=== PATIENT | female | born 1940 | race Caucasian/White ===

== ENCOUNTER 2020-01-08 07:54 | Day surgery (SDC) | payer MEDICARE ==
[2020-01-08] VITALS (7 sets, daily range): BP systolic 112–167; BP diastolic 67–78
[~2020-01-08] VITALS: Ht 160 cm; Wt 51.1 kg
[~2020-01-08 07:54] MED LIST: ASPI-1265 PO; HYDR-4298 PO; LOSA50TA3 PO; MELO-100 PO; METO50TA7 PO
[2020-01-08] MEDS ORDERED: ALBU18HF2 INH (09:15)
[2020-01-08] MEDS ORDERED: FLUT9.9S (09:15)
[2020-01-08] MEDS ORDERED: TRAM50TA2 PO (09:15)
[2020-01-08] MEDS ORDERED: IBUP200C89 PO (09:15)
[2020-01-08] MEDS ORDERED: TIOT18CA3 INH (09:15)
[2020-01-08] MEDS ORDERED: DOCU100C40 PO (09:15)
[2020-01-08] MEDS ORDERED: FLUT1DIS INH (09:15)
[2020-01-08] MEDS ORDERED: ALBU2.5V13 NEB (09:15)
[2020-01-08] MEDS ORDERED: CHOL20002 PO (09:15)
[2020-01-08] MEDS ORDERED: MONT10TA21 PO (09:15)
[2020-01-08] MEDS ORDERED: fentaNYL/PF 50MCG/1 ML 2ML syringe ONE (10:05)
[2020-01-08] MEDS ORDERED: midazolam 2 mg/2 ml injection ONE (10:05)
[2020-01-08] MEDS ORDERED: LIDOcaine 1%/PF 5ML 10 MG/ML VIAL ONE (10:06)
[2020-01-08] MEDS ORDERED: heparin sodium, porcine/PF 100unit/ml 5ML syringe ONE (10:06)
[2020-01-08] MEDS ORDERED: normal saline 1000ml 1,000 ML IV SCH (11:40)
== END 2020-01-08 13:10 | disposition home or self-care (01) ==
LOC: SSTAY O 07:54
PROVIDERS: ATTEND Radiology Diagnostic Radiology
DX: C34.31 Malignant neoplasm of lower lobe, right bronchus or lung (principal); J44.9 Chronic obstructive pulmonary disease, unspecified; F41.9 Anxiety disorder, unspecified; F32.9 Major depressive disorder, single episode, unspecified; M19.90 Unspecified osteoarthritis, unspecified site; E88.01 Alpha-1-antitrypsin deficiency; Z88.8 Allergy status to other drugs, medicaments and biological substances; Z88.5 Allergy status to narcotic agent; Z20.828 Contact with and (suspected) exposure to other viral communicable diseases; Z98.890 Other specified postprocedural states; Z95.0 Presence of cardiac pacemaker; Z79.899 Other long term (current) drug therapy; Z79.82 Long term (current) use of aspirin; Z87.891 Personal history of nicotine dependence
CPT/HCPCS: 36561; 76937; 77001; 87635; 99152; 99153; C1769; C1788; C1894; C9803; J1642; J2250; J3010